=== PATIENT | female | born 1975 | race American Indian/Alaskan Native ===

== ENCOUNTER 2016-08-11 08:48 | Emergency (ER) | payer MEDICAID ==
[2016-08-11 09:39] LABS: Basophils % (Auto) 0.6 % (0.0-1.8); Eosinophils % (Auto) 2.2 % (0.0-4.3); Hemoglobin 12.5 gm/dl (10.1-14.3); Mean Corpuscular HGB Conc 32 % (30-34); Mean Corpuscular Hemoglobin 27 pg (28-32); Mean Corpuscular Volume 85 fl (79-97); Platelet Count 431 K/mm3 (140-440); Red Blood Count 4.61 M/mm3 (3.65-5.03); White Blood Count 7.1 K/mm3 (4.5-11.0)
--- NOTE | 2016-08-11 09:50 | XRay Report ---
Chest 2 views: Compared to 06/11/15. History: Chest pain, shortness of breath. Findings: Low volume lungs. No consolidation, pneumothorax or pleural effusion. Suspected right basilar atelectasis. Impression: Suspected right basilar atelectasis.
[2016-08-11 10:02] LABS: Anion Gap 19 mmol/L; Blood Urea Nitrogen 9 mg/dL (7-17); Calcium 8.8 mg/dL (8.4-10.2); Carbon Dioxide 23 mmol/L (22-30); Chloride 98.9 mmol/L (98-107); Glucose 114 mg/dL (65-100); Potassium 3.7 mmol/L (3.6-5.0); Sodium 137 mmol/L (137-145)
[2016-08-11] MEDS ORDERED: DUONEB 0.5 MG-3 MG/3 ML SOLN IH ONE (10:58)
[2016-08-11] MEDS ORDERED: DELTASONE PO ONE (10:59)
[2016-08-11] MEDS ORDERED: NORVASC PO ONE (10:59)
--- NOTE | 2016-08-11 11:04 | Emergency Department Report ---
HPI - General Chief Complaint: Chest Pain Time Seen by Provider: 08/11/16 10:51 - HPI HPI: Chief complaint: Wheezing, cough, pleuritic chest pain and shortness breath HPI: Patient is a 41-year-old female with a history of asthma and pneumonia states she had something that felt like the flu last week with body aches and nonproductive cough which has improved except for the sharp chest pain on coughing and a sensation of wheezing. Patient has been using her inhaler but does not feel that it is helping. Patient had pneumonia approximately one year ago. Patient's primary care doctor is at [facility] by Dr. Valverde and she has an appointment for next week. Patient states she did not take her blood pressure medicine this morning because she was coming to the hospital. Patient denies nausea, vomiting, diarrhea or fever. Mode of arrival: private car Source: Patient Began: Last week Duration: One and a half to 2 weeks Context: See above Quality: Sharp pleuritic Severity: 10 out of 10 Improved with: Chest pain worse with cough, no improvement with nebulizer Worsened with: See above Associated signs and symptoms: See above ED Past Medical Hx - Past Medical History Hx Hypertension: Yes Hx Asthma: Yes - Surgical History Hx Cholecystectomy: Yes Additional Surgical History: tubal ligation - Social History Smoking Status: Never Smoker Substance Use Type: None - Medications Home Medications: Home Medications Medication Instructions Recorded Confirmed Last Taken Type Amlodipine Besylate [Norvasc] 0 mg PO DAILY 06/11/15 06/11/15 Unknown History Azithromycin [Zithromax TAB] 500 mg PO QDAY #5 tablet 06/11/15 Unknown Rx Hydrochlorothiazide [HCTZ] 0 mg PO QDAY 06/11/15 06/11/15 Unknown History predniSONE [Deltasone] 20 mg PO TID #12 tab 06/11/15 Unknown Rx Albuterol Sulfate [Ventolin HFA] 2 puff IH Q4H PRN #1 hfa.aer.ad 08/11/16 Unknown Rx Azithromycin [Zithromax TAB] 500 mg PO QDAY #3 tablet 08/11/16 Unknown Rx Prednisone [predniSONE 5 mg (6-Day 5 mg PO .TAPER #1 tab.ds.pk 08/11/16 Unknown Rx Pack, 21 Tabs)] Promethazine /Codeine 5 ml PO Q6H PRN #120 ml 08/11/16 Unknown Rx [Phenergan/Codeine 6.25-10 mg/5 ml] ED Review of Systems ROS: Stated complaint: SOB/CHEST PAIN / Other details as noted in HPI ROS Constitutional: No fever ENT: No uri symptoms Cardiovascular: chest pain Respiratory: See HPI GI: No nausea vomiting or diarrhea : No dysuria frequency or urgency, Skin: No rash Neuro: No focal weakness or numbness Psych: No depression Carlo/lymph: No edema Physical Exam - Physical Exam Vital Signs: Vital Signs 08/11/16 09:09 Temperature 100.3 F H Pulse Rate 87 Respiratory 24 Rate Blood Pressure 176/108 O2 Sat by Pulse 98 Oximetry Physical Exam: GENERAL: The patient is well-developed well-nourished . HEENT: Normocephalic. Atraumatic. Extraocular motions are intact. Patient has moist mucous membranes. NECK: Supple. No meningitic signs are noted. There is no adenopathy noted. CHEST/LUNGS: Clear to auscultation. There is no respiratory distress noted. Tender right costosternal border reproduces pain with palpation. HEART/CARDIOVASCULAR: Regular. There is no tachycardia. There is no gallop rub or murmur. ABDOMEN: Abdomen is soft, nontender. Patient has normal bowel sounds. There is no abdominal distention. SKIN: There is no rash. There is no edema. There is no diaphoresis. NEURO: The patient is awake, alert, and oriented. The patient is cooperative. The patient has no focal neurologic deficits. The patient has normal speech. MUSCULOSKELETAL: There is no tenderness or deformity. There is no limitation range of motion. There is no evidence of acute injury. ED Course Vital Signs 08/11/16 09:09 Temperature 100.3 F H Pulse Rate 87 Respiratory 24 Rate Blood Pressure 176/108 O2 Sat by Pulse 98 Oximetry - Reevaluation(s) Reevaluation #1: 08/11/16 11:36 Patient given a DuoNeb, 60 mg prednisone by mouth and her 10 mg of Norvasc with improvement. ED Medical Decision Making - Lab Data Result diagrams: 08/11/16 09:24 08/11/16 09:24 Laboratory Tests 08/11/16 09:24 Troponin T < 0.010 - EKG Data -: EKG Interpreted by Me EKG shows normal: sinus rhythm Rate: normal (93) - EKG Data When compared to previous EKG there are: no significant change Interpretation: nonspecific ST-T wave ramón - Radiology Data Radiology results: report reviewed (a basal atelectasis) Critical care attestation.: If time is entered above; I have spent that time in minutes in the direct care of this critically ill patient, excluding procedure time. ED Disposition Clinical Impression: Hypertension, essential Asthmatic bronchitis Qualifiers: Asthma severity: mild intermittent Asthma complication type: uncomplicated Qualified Code(s): J45.20 - Mild intermittent asthma, uncomplicated Disposition: DISCHARGED TO HOME OR SELFCARE Is pt being admited?: No Does the pt Need Aspirin: No Condition: Stable Instructions: Acute Bronchitis (ED), Hypertension (ED) Prescriptions: Albuterol Sulfate [Ventolin HFA] 2 puff IH Q4H PRN #1 hfa.aer.ad PRN Reason: Shortness Of Breath Azithromycin [Zithromax TAB] 500 mg PO QDAY #3 tablet Prednisone [predniSONE 5 mg (6-Day Pack, 21 Tabs)] 5 mg PO .TAPER #1 tab.ds.pk Promethazine /Codeine [Phenergan/Codeine 6.25-10 mg/5 ml] 5 ml PO Q6H PRN #120 ml PRN Reason: cough Referrals: PRIMARY CARE, [Primary Care Provider] - 3-5 Days follow-up, Dr. Valverde as planned [Other] - as needed Time of Disposition: 11:06
[2016-08-11] MEDS ORDERED: PROVENTIL IH ONE (11:45)
[2016-08-11] MEDS: PROVENTIL IH ONE ×2 (11:45→13:03)
[2016-08-11 12:54] VITALS: BP 161/94
== END 2016-08-11 12:25 | disposition home or self-care (01) ==
LOC: ED 08:48
DX: J45.20 Mild intermittent asthma, uncomplicated (principal); I10 Essential (primary) hypertension; Z98.51 Tubal ligation status; Z90.49 Acquired absence of other specified parts of digestive tract
CPT/HCPCS: 36415; 71020; 80048; 84484; 85025; 93005; 93010; 94640; 99285; J7512

== ENCOUNTER 2018-02-01 23:51 | Emergency (ER) | payer MEDICAID ==
[2018-02-02 00:08] VITALS: BP 168/102
[2018-02-02] MEDS ORDERED: ASPIRIN PO ONE (00:08)
[2018-02-02 00:35] LABS: Basophils % (Auto) 0.5 % (0.0-1.8); Eosinophils # (Auto) 0.4 K/mm3 (0.0-0.4); Eosinophils % (Auto) 4.6 % (0.0-4.3); Hematocrit 36.4 % (30.3-42.9); Hemoglobin 12.1 gm/dl (10.1-14.3); Lymphocytes # (Auto) 2.2 K/mm3 (1.2-5.4); Lymphocytes % (Auto) 27.4 % (13.4-35.0); Mean Corpuscular HGB Conc 33 % (30-34); Mean Corpuscular Hemoglobin 28 pg (28-32); Mean Corpuscular Volume 84 fl (79-97); Monocytes # (Auto) 0.6 K/mm3 (0.0-0.8); Monocytes % (Auto) 7.3 % (0.0-7.3); Platelet Count 470 K/mm3 (140-440); Red Blood Count 4.32 M/mm3 (3.65-5.03); Red Cell Distribution Width 15.6 % (13.2-15.2)
[2018-02-02 00:55] LABS: BUN/Creatinine Ratio 19; Blood Urea Nitrogen 13 mg/dL (7-17); Calcium 9.1 mg/dL (8.4-10.2); Hemolysis Index 8
== END 2018-02-02 03:56 ==
LOC: ED 23:51
DX: R07.9 Chest pain, unspecified (principal); R06.02 Shortness of breath; Z53.21 Procedure and treatment not carried out due to patient leaving prior to being seen by health care provider
CPT/HCPCS: 36415; 80048; 84484; 84703; 85025; 93005; 93010